=== PATIENT | female | born 2000 ===

== ENCOUNTER 2025-04-24 02:50 | Day surgery (SDC) | payer MEDICARE, OTHER ==
[2025-04-24] MEDS ORDERED: Infliximab-DYYB 1,000 MG in NS 250 ML IV SCH (15:30)
[2025-04-24] MEDS ORDERED: Vitamin D1000 UNI1 PO (15:47)
[2025-04-24] MEDS ORDERED: IRON18 M1 PO (15:48)
[2025-04-24] MEDS ORDERED: BUPR150ER PO (15:48)
[2025-04-24] MEDS ORDERED: METF500 PO (15:48)
[2025-04-24] MEDS ORDERED: PROG100 PO (15:49)
[2025-04-24] MEDS ORDERED: EUTHYROX88 MCG PO (15:49)
[2025-04-24 17:01] VITALS: BP 119/56
== END 2025-04-24 17:53 | disposition home or self-care (01) ==
LOC: ATC 02:50
DX: L73.2 Hidradenitis suppurativa (principal); E03.9 Hypothyroidism, unspecified; F17.290 Nicotine dependence, other tobacco product, uncomplicated; Z91.040 Latex allergy status; Z91.09 Other allergy status, other than to drugs and biological substances; Z79.890 Hormone replacement therapy; Z79.899 Other long term (current) drug therapy
CPT/HCPCS: 96413; 96415; J7050; Q5103